=== PATIENT | female | born 1970 | race Caucasian/White ===

== ENCOUNTER 2016-09-16 14:41 | Day surgery (SDC) | payer OTHER ==
[~2016-09-16 14:41] MED LIST: DIPRIVAN 200 MG/20 ML IV ONE; Kenalog-40 IM ONE; Lactated Ringers 1,000 ML IV ONE; Lactated Ringers 1,000 ML IV SCH; Sensorcaine 0.25% 10 ML IJ ONE
[2016-09-16 16:07] VITALS: BP 141/83; PULSE 73; O2SAT 98
--- NOTE | 2016-09-16 19:23 | XRAY ---
Indication: Left C5-T1 medial branch block. Intraoperative fluoroscopy was provided for 10 seconds. Single digital spot image submitted for interpretation demonstrates 4 posterior spinal needles with the tips projecting over the expected course of the left C5-T1 nerve roots. Correlate with intraoperative findings/report.
--- NOTE | 2016-09-17 15:13 | XRAY ---
10 seconds fluoroscopy time in surgery for left MBB C5-T1.
== END 2016-09-16 19:19 | disposition home or self-care (01) ==
LOC: SDC-PAIN 14:41
PROVIDERS: ATTEND Pain Medicine Interventional Pain Medicine
DX: M54.2 Cervicalgia (principal); M47.20 Other spondylosis with radiculopathy, site unspecified; Z79.891 Long term (current) use of opiate analgesic
CPT/HCPCS: 64490; 64491; 64492; 72020; 77003; J2704; J3301

== ENCOUNTER 2016-12-23 07:54 | Day surgery (SDC) | payer OTHER ==
[2016-12-23] MEDS ORDERED: Lactated Ringers 1,000 ML IV ONE (08:00)
[2016-12-23] MEDS ORDERED: DIPRIVAN 200 MG/20 ML IV ONE (08:10)
[2016-12-23] MEDS ORDERED: Sensorcaine 0.25% 10 ML IJ ONE (09:00)
[2016-12-23] MEDS ORDERED: Kenalog-40 IM ONE (09:00)
--- NOTE | 2016-12-23 17:19 | XRAY ---
16 seconds fluoroscopy time in surgery for left side C5-8 MBB.
--- NOTE | 2016-12-24 09:56 | XRAY ---
Indication: Left-sided C5-8 MBP Intraoperative fluoroscopy was provided for 16 seconds. A single frontal C-arm spot image is submitted for interpretation and demonstrates 4 spinal needles with the respective tips projected over the expected course of the left C5-C8 nerve roots. Correlate with intraoperative findings/report. I also see a metallic needle oriented obliquely with the tip near the midline at the lower T1 level.
== END 2016-12-23 09:40 | disposition home or self-care (01) ==
LOC: SDC-PAIN 07:54
PROVIDERS: ATTEND Pain Medicine Interventional Pain Medicine
DX: M54.2 Cervicalgia (principal); M47.20 Other spondylosis with radiculopathy, site unspecified; Z79.891 Long term (current) use of opiate analgesic
CPT/HCPCS: 64490; 64491; 72020; 77003; J2704; J3301